=== PATIENT | female | born 2000 | race Two or more races ===

== ENCOUNTER 2024-09-09 14:04 | Emergency (ER) | payer MEDICAID, SELFPAY ==
[2024-09-09 14:05] VITALS: BMI 20.1
[2024-09-09 14:10] VITALS: BP 113/75; PULSE 88; RESP 16; TEMP 36.9; O2SAT 96
--- NOTE | 2024-09-09 15:03 | PD.EDLOWEX ---
Lower Extremity Injury RME/HPI General Chief Complaint: Extremity Injury, Lower Stated Complaint: INJURY TO RIGHT KNEE TODAY Time Seen by Provider: 09/09/24 14:41 Source: patient Arrival date/time: 09/09/24 14:04 23-year-old female presents emergency department complaints of acute right knee pain. Patient reports she was walking when she felt her knee pop out of place and popped right back in. Patient does have a history of knee dislocations in the past. Patient did not attempt any interventions or take any OTC medications prior to ED visit. Patient denies any other associated symptoms or aggravating factors. No modifying factors, no radiation, no migration. Related Data Home Medications ?Medication ?Instructions ?Recorded ?Confirmed No Known Home Medications 10/16/18 10/16/18 Allergies Allergy/AdvReac Type Severity Reaction Status Date / Time No Known Allergies Allergy Verified 09/09/24 14:07 Review of Systems Review of Systems Systems Reviewed: All systems reviewed, normal except as documented Narrative Review of Systems: Gen: No fever, no chills, no weight loss EYES: No discharge, no visual changes, no pain HEENT: No ear pain, no congestion, no sore throat PULM: No shortness of breath, no cough, no congestion CV: No chest pain, no dyspnea on exertion, no palpitations GI: No nausea, no vomiting, no diarrhea, no pain, no constipation : No frequency, no urgency, no dysuria Musc/skel: +knee pain, no back pain Skin: No rash Psyc: No hallucinations, no depression Heme/Lymph: No easy bleeding or bruising tendencies Neuro: No weakness, no headache Past Medical History Past Medical History CARDIAC: Negative Congestive Heart Failure RESPIRATORY: Negative Chronic Obstructive Pulmonary Disease (COPD) GENITOURINARY: Negative Renal Disease ENDOCRINE: Negative Diabetes Mellitus Type 1 or Diabetes Mellitus Type 2 Social History SMOKING STATUS: Never smoker ED Exam Narrative Physical exam: General: Sittiing in Exam table in no acute distress, answering questions appropriately HENT: normocephalic, atraumatic, EOMI, PERRLA, moist mucous membranes Chest: chest wall is nontender Cardiac: regular rate and rhythm, normal S1 and S2, no murmurs, rubs, or gallops, capillary refill ?2 seconds Pulmonary: clear to auscultation bilaterally, no wheezing, crackles, or rhonchi Abdominal: active bowel sounds, soft, nontender, nondistended Neuro: A&OX3, CN II-XII intact, sensation grossly intact bilaterally in UE and LE. Skin: no rashes, no ecchymosis Ext: RIGHT knee anterior swelling, effusion mild. No crepitus Course Quality Measures none Orders Category Date Time Status Crutches .NOW Care 09/09/24 15:03 Completed XR knee RT 3V Stat Exams 09/09/24 15:03 Completed Ibuprofen Tab [Motrin Tab] Med 09/09/24 15:03 Discontinued 800 mg PO X1 ONE Vital Signs Vital signs: Vital Signs Temperature 98.4 F 09/09/24 14:10 Pulse Rate 88 09/09/24 14:10 Respiratory Rate 16 09/09/24 14:10 Blood Pressure 113/75 09/09/24 14:10 Pulse Oximetry (%) 96 09/09/24 14:10 Oxygen Delivery Method Room Air 09/09/24 14:10 Extremity Injury, Lower MDM Narrative MDM Narrative:: Clinical presentation appears to be that of Knee contusion rest. Knee xray reveals small knee effusion and no acute fracture. Will Dc home with crutches, knee brace and analgesic. Patient instructed to allow your injury to heal before you do slow movements. Prop your knee on pillows to help with swelling. Please follow up with Primary Doctor in 48 hrs. Please return to ER if any worsening symptoms. Patient data External records reviewed:: [facility] previous records Clinical information provided by:: patient Social determinants that could affect healthcare access:: none Patient has the following chronic illnesses:: None How is presenting disease/condition affected by chronic disease/condition?: no chronic disease Evaluation data The following diagnostics were reviewed and interpreted by me:: radiology exam(s) Lab and/or radiology exams considered but not ordered:: No Interpretation Summary: Examination: Knee, right , 3 views Technique: Knee AP, lateral, oblique 3 views Date and time of exam: September 09, 2024 1508 hrs. Indications: Patient fell today with injury to the knee, knee pain. Findings: No fracture or dislocation Significant knee effusion Impression: No fracture or dislocation Significant knee effusion, seen with internal derangement of the knee Medications / Prescriptions Medications or Prescriptions considered but not ordered:: No Medication administrations:: Medication Administration History Discontinued Medications Ibuprofen (Ibuprofen Tab 400 Mg Tablet) 800 mg PO X1 ONE Stop: 09/09/24 15:04 Last Admin: 09/09/24 15:21 Dose: 800 mg Documented By: ALBERTO Yes, all medications administered and effective Consultations Consultation(s) initiated? (list below): No Diagnosis Extremity Injury, Lower Differential Diagnosis: ankle sprain and strain, acute internal derangement of knee and other (Fracture, knee dislocation, patellar dislocation.) Most likely diagnosis given after review of the tests above:: Knee contusion, Knee effusion Admission Indicated Admission indicated?: not indicated Admission Request Was there a request for admission?: No Disposition Plan Disposition Plan: Discharge Discharge Attestation Discharge Attestation: The patient and all family members were given an opportunity to ask questions and understood the discharge instructions. Discharge instructions specifically effects, indications for sooner follow up or return to the emergency department, and the expected course of current diagnosis. Patient condition: Stable Discharge Plan Plan Patient Disposition: HOME (Self Care) Patient condition on transfer: Stable Prescriptions/Referrals Prescriptions/Med Rec: No Action No Known Home Medications Referrals: Aisha Fuller PATIENT TRANSPORT OFFICER [Primary Care Provider] - In 1 week Problem List Clinical Impression: Bilateral knee effusions, Acute knee pain Patient/Caregiver Discharge Instructions Discharge Activity: activity as tolerated Education Materials: ED Knee Effusion, ED Knee Sprain Additional Instructions: - It is very important that you follow-up with your provider Wear knee brace as directed use your crutches. You might need an outpatient MRI reTurn to the emergency department with any worsening symptoms change in condition. Print Language: Arabic Stand Alone Forms: Naya Award Info., Work/School Release, Patient Portal Info Letter DEEPTI/BERONICA Supervising Physician DEEPTI/BERONICA Supervising Physician: Dr Bee
[2024-09-09] MEDS: IBUPROFEN TAB 400 MG TABLET 800 MG PO (15:21)
== END 2024-09-09 17:34 | disposition home or self-care (01) ==
PROVIDERS: Emergency Provider Emergency Medicine; PCP Nurse Practitioner Family
DX: S89.91XA Unspecified injury of right lower leg, initial encounter (principal); M25.462 Effusion, left knee; M25.461 Effusion, right knee; X58.XXXA Exposure to other specified factors, initial encounter; Y93.01 Activity, walking, marching and hiking
CPT/HCPCS: 73562; 99283; A9270

== ENCOUNTER → 2024-10-06 | Outpatient (CLI) | payer MEDICAID, SELFPAY ==
--- NOTE | 2024-10-06 07:30 | XR_ITS ---
Exam: MRI knee without contrast, right Date and time of exam: October 06, 2024 0759 hrs. Indications: Patient fell one month ago with injury to the knee followed by pain Technique: Multiple axial, coronal, and sagittal sections on the knee have been obtained. T2-Weighted sagittal, fat-suppressed images, TR 3,500, TE 62, T2 weighted coronal fat-saturated images, TR 3,500, TE 62 Proton density sagittal sections, TR 1800, TE 31. T-1 weighted coronal images, TR 524, TE 13.0 Findings: Medial meniscus anterior horn intact. Medial meniscus, body is intact. Posterior horn medial meniscus intact. Lateral meniscus anterior horn is intact Lateral meniscus, body is intact Posterior horn lateral meniscus is intact Anterior cruciate ligament moderate sprain Posterior cruciate ligament appears intact. Knee effusion is significant. Evidence for prior complete patellar dislocation with high-grade tear of the medial patellar retinaculum, bone marrow contusion medial patella and bone contusion anterior lateral femoral condyle Currently 10 mm subluxation of the patella laterally Strain of the patellar tendon also at its patellar insertion Inflammatory change or fracture of Hoffa's fat pad is not seen. Medial patellar facet demonstrates no thinning. Lateral patellar facet cartilage demonstrates no thinning. Trochlear cartilage demonstrates no thinning. Medial collateral ligament appears intact. No meniscocapsular separation is seen. Illiotibial band and fibular collateral ligament are intact. Biceps femoris tendons appear intact. Medial femoral condylar articular cartilage demonstrates no thinning. Lateral femoral condylar articular cartilage demonstratesno thinning. Tibial plateau cartilage demonstrates no thinning. Impression: Findings are consistent with prior complete patellar dislocation as above, including high-grade sprain of the medial patellar retinaculum Currently 10 mm lateral subluxation of the patella Moderate sprain anterior cruciate ligament
== END | disposition home or self-care (01) ==
PROVIDERS: Referring Provider Physician Assistant; Visit Provider Physician Assistant
DX: S76.191A Other specified injury of right quadriceps muscle, fascia and tendon, initial encounter (principal); S83.011A Lateral subluxation of right patella, initial encounter; S83.511A Sprain of anterior cruciate ligament of right knee, initial encounter; W19.XXXA Unspecified fall, initial encounter
CPT/HCPCS: 73721

== ENCOUNTER 2025-05-20 08:30 | Outpatient (RCR) | payer MEDICAID, SELFPAY ==
--- NOTE | 2025-05-17 13:38 | PTNOTE_ITS ---
PT OP Initial Eval Patient Information Outpatient Physical Therapy Treatment Date: 05/17/25 Visit Reasons: Right distal femoral post op Medical Diagnosis: M25.361 Treatment Dx #1: Right Knee Mobility Deficits Treatment Dx #2: Right Knee Weakness Start of Care: 05/17/25 Date of Onset: 05/06/25 Smoking Status Smoking Status: Never smoker Initial Assessment Subjective: Pt is a 24 y/o female s/p distal femoral derotational DFO 05/06/25 due to knee instability and injury ~ 9 months ago. Pt still has pain (7/10) with activities. Pt has limitation with standing, walking, chores, self care, balance, recreational activities, and performing ADLs. Objective: Right Knee AROM: -10 deg to 30 deg Right Knee PROM: -8 deg to 40 deg Right Knee MMTs: grossly 2-/5 Right Hip MMTs: grossly 2-/5 Assessment: Pt demonstrate right knee mobility and strength deficits s/p knee surgery leading to difficulty with ADLs. Pt will benefit from physical therapy to increase ROM, strength, and work on ambulation. Short Term and Sleeve Turner Goals 1) Increase right knee AROM WNL in 12 wks to be able to perform chores 2) Increase right knee MMTs grossly to 4-/5 in 12 wks to be able to perform squatting activities 3) Increase right hip MMTs grossly to 4-/5 in 12 wks to be able to walk without AD 4) Decrease knee pain to 2/10 in 12 wks to be able to perform recreational activities 5) Increase SLS to 20 sec in 12 wks to be able to perform self care activities 6) Indep with HEP Treatment Plan 1) Manual Therapy 2) Therapeutic Activities 3) Therapeutic Exercises 4) Modalities (ice, heat) 5) Balance Training 6) Gait Training Frequency and Duration: 2 x wk for 12 wks Certification Dates: 05/17/25 to 08/17/25 Procedure Charges OP PT Eval Mod Complex 30 minutes: Yes
--- NOTE | 2025-05-20 09:50 | PT.ODAYNRPT ---
PT Outpatient Daily Note OP Daily Note Outpatient Physical Therapy Treatment Date: 05/20/25 Visit Reasons: Right distal femoral post op Subjective: Pt has been practicing HEP at home but knee feels really stiff. Pt will be seeing Dr Casiano on since he was concern about the knee not bending as far as expected Objective: Please see flow chart for list of ther ex perfomed Assessment: patient very guarded with PROM due to pain. Minimal increase in AAROM noted post PT session. Post ice helped with pain and soreness. Pt encouraged to continue HEP to help increase knee flexion ROM. Pt gave verbal consent and understanding. Plan: Continue with PT Length of Time (minutes) of Treatment: 30 Minutes Procedure Charges Therapeutic Exercise 30 minutes: Yes
== END 2025-05-23 23:59 | disposition home or self-care (01) ==
LOC: CPTX 08:30
PROVIDERS: PCP Orthopaedic Surgery; Referring Provider Orthopaedic Surgery; Visit Provider Orthopaedic Surgery
DX: M25.561 Pain in right knee (principal); M25.361 Other instability, right knee; R53.1 Weakness; R26.2 Difficulty in walking, not elsewhere classified; R26.89 Other abnormalities of gait and mobility; S89.91XD Unspecified injury of right lower leg, subsequent encounter; X58.XXXD Exposure to other specified factors, subsequent encounter
CPT/HCPCS: 97110; 97162

== ENCOUNTER 2025-06-20 11:00 | Outpatient (RCR) | payer MEDICAID, SELFPAY ==
--- NOTE | 2025-05-24 14:13 | PTNOTE_ITS ---
PT Outpatient Daily Note OP Daily Note Outpatient Physical Therapy Treatment Date: 05/24/25 Visit Reasons: RT femoral distal post op Subjective: Pt reports having follow up with surgeons GLOBAL PRODUCT MANAGER, GLOBAL PRODUCT MANAGER gave updated instructions would like pt to be at or past 90 deg of knee flexion on her follow up appointment in 2 weeks. Pt mentiond that she was prescribed pain meds and muscle relaxers but has not been able to get them from pharmacy yet. Pt also mentioned she is to con tinue wearing brace and using cruches but GLOBAL PRODUCT MANAGER said she can start TTWB on R LE. Objective: Please see flow sheet for ther ex list. Assessment: Pt highly guarded during PROM into knee flexion, attempted in supine and sitting but pt guarded. Pt educated on the importance of performing HEP, encouraged pt to perform HEP pt agreed. Plan: Continue with pOC. Length of Time (minutes) of Treatment: 30 Minutes Procedure Charges Therapeutic Exercise 30 minutes: Yes
--- NOTE | 2025-05-28 13:08 | PT.ODAYNRPT ---
PT Outpatient Daily Note OP Daily Note Outpatient Physical Therapy Treatment Date: 05/28/25 Visit Reasons: RT femoral distal post op Subjective: Pt's has been more aggressive with physical therapy at home. Pt notice some progress with bending. Pt still has difficulty bending her knee while sitting. Pt took half of a pain medication prior to PT session Objective: Right Knee AROM: 48 deg Assessment: Pt is slowly progressing with knee flexion AROM. Pt less guarded with PROM today due to pre-medication. Pt instructed to continue until she's able to tolerate PROM/exercises. Towards end of PT session patient was able to sit with right knee slightly bent with glutes touching the bed. Plan: Continue with PT Length of Time (minutes) of Treatment: 30 Minutes Procedure Charges Therapeutic Exercise 30 minutes: Yes
--- NOTE | 2025-05-30 13:23 | PT.ODAYNRPT ---
PT Outpatient Daily Note OP Daily Note Outpatient Physical Therapy Treatment Date: 05/30/25 Visit Reasons: RT femoral distal post op Subjective: Pt shared she has not done HEP since she was here in PT last 2 days ago. Pt feels knee mobility is slowly progressing. Objective: Please see flow sheet for ther ex list. Assessment: High focus on restoring knee flexion of R knee. Decrease guarding allowing for more ROM during PROm, able to reach ~54 deg of knee flex PROM. Plan: Continue with poC. Length of Time (minutes) of Treatment: 30 Minutes Procedure Charges Therapeutic Exercise 30 minutes: Yes
--- NOTE | 2025-06-05 12:44 | PT.ODS1RPT ---
PT OP Progress/Discharge Note Date of Service: 06/05/25 Progress Note/DC Note Progress Note/Discharge Note: Progress Note Patient Information Visit Reasons: RT femoral distal post op Medical Diagnosis: M25.361 Treatment Dx #1: Right Knee Mobility Deficits Treatment Dx #2: Right Knee Weakness Service Continue Service or Discharge: Continue Service Certification Date Certification Dates: 06/05/25 to 09/05/25 Status Subjective: Pt's knee continues to feel stiff with bending. Pt has been able to get in/out of bed, transfer, and sit with less limitation. Pt continues her HEP at home, however, progress is slow. Pt will be following up with specialist tomorrow and is concern since her knee is not at 90 deg. Objective: Right Knee AROM 59 deg Right Knee PROM: 62 deg Right Knee MMTs: grossly 3-/5 Right Hip MMTs: grossly 3-/5 Active SLR: 90 deg Assessment: Pt is slowly progressing with right knee AROM and strength allowing her to sit, transfer, ambulate, and perform light ADLs with less limitation. Pt is very guarded during passive stretching and exercises due to fear of pain and knee hypomobility. Pt has not met set goals and will continue to benefit from physical therapy; thank you for your referrals. Plan: Continue with PT/POC Procedure Charges Therapeutic Exercise 30 minutes: Yes
--- NOTE | 2025-06-07 15:25 | PT.ODAYNRPT ---
PT Outpatient Daily Note OP Daily Note Outpatient Physical Therapy Treatment Date: 06/07/25 Visit Reasons: RT femoral distal post op Subjective: According to patient she is allowed to ambulate with WBAT per surgeon since the bone are healing correctly. Surgeon was not too concern about the knee not being at 90 deg. Pt will follow up with surgeon in 3 weeks and will like the knee to be able to bend more. Objective: Right Knee Flexion AROM: 65 deg Assessment: Pt continues to slowly progress with knee flexion AROM; per new MD order Pt is allowed to WBAT and was able to perform side step exercise in PB. Pt's SLR improve with better quad control. Plan: Conitnue with PT Length of Time (minutes) of Treatment: 30 Minutes Procedure Charges Therapeutic Exercise 30 minutes: Yes
--- NOTE | 2025-06-12 11:32 | PT.ODAYNRPT ---
PT Outpatient Daily Note OP Daily Note Outpatient Physical Therapy Treatment Date: 06/12/25 Visit Reasons: RT femoral distal post op Subjective: Pt reports R knee is doing a little better, continues working on HEP. Objective: Please see flow sheet for ther ex list. Assessment: Focus on restoring ROM. Worked on active knee flexion and heel strike resulting in improved gait. Plan: Continue with pOC. Length of Time (minutes) of Treatment: 30 Minutes Procedure Charges Therapeutic Exercise 30 minutes: Yes
--- NOTE | 2025-06-14 12:06 | PT.ODAYNRPT ---
PT Outpatient Daily Note OP Daily Note Outpatient Physical Therapy Treatment Date: 06/14/25 Visit Reasons: RT femoral distal post op Subjective: Pt's knee is tight. Pt has been practicing walking at home. Pt notice she can bend her knee more now with walking. Objective: Right Knee AROM: 67 deg; PROM: 72 deg Assessment: Pt is slowly progressing with knee AROM and PROM with less pain reported. Practice GT with one crutch; patient demonstrate safely Plan: Continue with PT Length of Time (minutes) of Treatment: 30 Minutes Procedure Charges Therapeutic Exercise 30 minutes: Yes
--- NOTE | 2025-06-18 13:37 | PT.ODAYNRPT ---
PT Outpatient Daily Note OP Daily Note Outpatient Physical Therapy Treatment Date: 06/18/25 Visit Reasons: RT femoral distal post op Subjective: Pt reports she has been compliant with HEP. Objective: Please see flow sheet for ther ex list. Assessment: Pt is highly guarded during PROM resulting in slow progress with ROM. Plan: Continue with pOC. Length of Time (minutes) of Treatment: 30 Minutes Procedure Charges Therapeutic Exercise 30 minutes: Yes
--- NOTE | 2025-06-20 13:53 | PTNOTE_ITS ---
PT Outpatient Daily Note OP Daily Note Outpatient Physical Therapy Treatment Date: 06/20/25 Visit Reasons: RT femoral distal post op Subjective: Pt reports she has been working on HEP, feels ROM of knee is slowly progressing. Pt shared that she has a follow up with surgeon on the 27 of June, pending on possible MARGI. Pt mentioned that she feels some pain with prone knee flexion stretch but pain resoves post strech and mentioned knee feels looser post PRO M. Objective: Please see flow sheet for ther ex list. R knee AROM 73 deg flexion. Assessment: Performed PROM into knee flexion with pt in prone position, pt highly guarded during PROM. Pt instructed on prone stretching in order to avoid compensating with hip flexion and encouraged to add prone knee flexion to HEP, pt agreed. Plan: Continue with POC. Length of Time (minutes) of Treatment: 30 Minutes Procedure Charges Therapeutic Exercise 30 minutes: Yes
== END 2025-06-23 23:59 | disposition home or self-care (01) ==
LOC: CPTX 11:00
PROVIDERS: PCP Orthopaedic Surgery; Referring Provider Orthopaedic Surgery; Visit Provider Orthopaedic Surgery
DX: M25.561 Pain in right knee (principal); R26.2 Difficulty in walking, not elsewhere classified; R26.89 Other abnormalities of gait and mobility; Z98.890 Other specified postprocedural states; M25.361 Other instability, right knee; R53.1 Weakness
CPT/HCPCS: 97110

== ENCOUNTER 2025-07-23 10:00 | Outpatient (RCR) | payer MEDICAID, SELFPAY ==
--- NOTE | 2025-06-26 12:42 | PT.ODAYNRPT ---
PT Outpatient Daily Note OP Daily Note Outpatient Physical Therapy Treatment Date: 06/26/25 Visit Reasons: RT femoral distal post op Subjective: Pt's knee is bending more. Pt continues to practice HEP at home. Pt mentioned she follows up with specialist tomorrow. Objective: Right Knee AAROM: 90 deg Assessment: Pt continues to slowly progress with knee flexion ROM, however, advised to consult with surgeon for possible MARGI to assist in speeding up with ROM. Pt gave verbal understanding and consent. Plan: Continue with PT Length of Time (minutes) of Treatment: 30 Minutes Procedure Charges Therapeutic Exercise 30 minutes: Yes
--- NOTE | 2025-06-28 12:10 | PT.ODAYNRPT ---
PT Outpatient Daily Note OP Daily Note Outpatient Physical Therapy Treatment Date: 06/28/25 Visit Reasons: RT femoral distal post op Subjective: Pt recently seen surgeon and wants her to up PT to 3x weekly. Surgeon did not seem concern regarding ROM since patient is slowly progressing. Pt has a follow up appt in 4 weeks. Objective: Please see flow chart for list of ther ex perfomed Assessment: decrease hip hike noted with sci fit. Pt was able to perform sitting SB closed chain knee flexion AAROM for a few mins. Pt had difficulty tolerating prone knee flexion stretch due to pain and tightness Plan: Continue with PT Length of Time (minutes) of Treatment: 30 Minutes Procedure Charges Therapeutic Exercise 30 minutes: Yes
--- NOTE | 2025-07-01 16:07 | PTNOTE_ITS ---
PT Outpatient Daily Note OP Daily Note Outpatient Physical Therapy Treatment Date: 07/01/25 Visit Reasons: RT femoral distal post op Subjective: Pt states she is doing well and is noticing progress with Rt knee ROM. Objective: See F/S for therex Assessment: Pt demo'd improvement w/ Rt knee flexion; Sci-Fit seat was advanced forward from 8 to 7 with minimal hip hike present. Able to perform SB wall sit up to 45 degrees knee flexion w/ cues needed to maintain even weight bearing. Improved tolerance w/ prone passive knee flexion stretch; limited due to pain and t ightness. Plan: Continue with POC Length of Time (minutes) of Treatment: 30 Minutes Procedure Charges Therapeutic Exercise 30 minutes: Yes
--- NOTE | 2025-07-03 11:56 | PT.ODAYNRPT ---
PT Outpatient Daily Note OP Daily Note Outpatient Physical Therapy Treatment Date: 07/03/25 Visit Reasons: RT femoral distal post op Subjective: Pt's knee is better but still feels stiff with walking. Pt has been stretching at home but doesn't feel as effective as when she's in therapy. Pt still use one crutch to help with walking especially long distance Objective: Please see flow chart for list of ther ex performed Assessment: patient demonstrate decrease knee flexion and foot with swing. Cue to heel toe and push off which improve foot clearance. Pt continues to progress slowly with knee flexion ROM Plan: Continue with PT Length of Time (minutes) of Treatment: 30 Minutes Procedure Charges Therapeutic Exercise 30 minutes: Yes
--- NOTE | 2025-07-05 11:20 | PT.ODAYNRPT ---
PT Outpatient Daily Note OP Daily Note Outpatient Physical Therapy Treatment Date: 07/05/25 Visit Reasons: RT femoral distal post op Subjective: Pt c/o Rt knee stiffness. Reports remaining consistent with HEP. Objective: See F/S for therex performed Assessment: Demo'd improvement w/ Rt knee flexion ROM w/ less hip hiking on the bike. Improved control and mechanics of Rt knee during exercises along w/ tolerance to prone passive knee flexion stretch. Ice pack applied post session. Plan: Continue with POC. Length of Time (minutes) of Treatment: 30 Minutes Procedure Charges Therapeutic Exercise 30 minutes: Yes
--- NOTE | 2025-07-08 11:57 | PT.ODAYNRPT ---
PT Outpatient Daily Note OP Daily Note Outpatient Physical Therapy Treatment Date: 07/08/25 Visit Reasons: RT femoral distal post op Subjective: Pt c/o of Rt knee stiffness, explains it is worse in the morning. Objective: See F/S for therex performed. Assessment: Tolerated therex well with no complaints and appropriate fatigue. Progressed to step ups and lateral step ups, demo'd good mechanics and control. Continues to progress slowly with knee flexion ROM. Ice pack applied post session. Plan: Continue with POC Length of Time (minutes) of Treatment: 30 Minutes Procedure Charges Therapeutic Exercise 30 minutes: Yes
--- NOTE | 2025-07-10 13:06 | PT.ODAYNRPT ---
PT Outpatient Daily Note OP Daily Note Outpatient Physical Therapy Treatment Date: 07/10/25 Visit Reasons: RT femoral distal post op Subjective: Pt reports progress with knee flexibility although range is not where she would like. Objective: Please see flow sheet for ther ex list. Assessment: pt demonstrates medial knee collapse during squat exercise likely due to poor hip abductor strength. Instructed pt to correct foot placement and knee position during squat exercise, pt complied. Plan: Continue with poC. Length of Time (minutes) of Treatment: 30 Minutes Procedure Charges Therapeutic Exercise 30 minutes: Yes
--- NOTE | 2025-07-10 14:18 | PT.ODAYNRPT ---
PT Outpatient Daily Note OP Daily Note Outpatient Physical Therapy Treatment Date: 07/10/25 Visit Reasons: RT femoral distal post op Subjective: Pt reports knee is doing better, ROM is progressing and is compliant with HEP. Objective: Please see flow sheet for ther ex list.
--- NOTE | 2025-07-12 12:03 | PT.ODAYNRPT ---
PT Outpatient Daily Note OP Daily Note Outpatient Physical Therapy Treatment Date: 07/12/25 Visit Reasons: RT femoral distal post op Subjective: Pt have been walking more lately. Pt notice soreness and muscle ache around the shins and calf region. Pt also reports of less knee cap pain with stretching Objective: Right Knee Flexion AROM: 94 deg Assessment: Pt continues to improve with knee flexion AROM with less pain reported. Able to increase stretching tolerance in prone knee flexion stretch Plan: Continue with PT Length of Time (minutes) of Treatment: 30 Minutes Procedure Charges Therapeutic Exercise 30 minutes: Yes
--- NOTE | 2025-07-15 15:52 | PT.ODAYNRPT ---
PT Outpatient Daily Note OP Daily Note Outpatient Physical Therapy Treatment Date: 07/15/25 Visit Reasons: RT femoral distal post op Subjective: Pt content to share that she notices the pain in the middle of her knee has improved. Pt was out of town over the weekend did more walking that usual and knee did well. Objective: Please see flow sheet for ther ex list. Assessment: Pt demonstrates improved gait pattern, normal mel and pt is flexing R knee during swing phase. Plan: Continue with poC. Length of Time (minutes) of Treatment: 30 Minutes Procedure Charges Therapeutic Exercise 30 minutes: Yes
--- NOTE | 2025-07-18 16:13 | PT.ODAYNRPT ---
PT Outpatient Daily Note OP Daily Note Outpatient Physical Therapy Treatment Date: 07/18/25 Visit Reasons: RT femoral distal post op Subjective: Pt notice ROM improvement and is satisfy so far. Objective: Right Knee Flexion AROM: 98 deg//105 deg Assessment: patient progressing with knee flexion AROM and today reports of less knee pain during passive stretching Plan: Continue with PT Length of Time (minutes) of Treatment: 30 Minutes Procedure Charges Therapeutic Exercise 30 minutes: Yes
--- NOTE | 2025-07-23 10:37 | PTNOTE_ITS ---
PT OP Progress/Discharge Note Date of Service: 07/23/25 Progress Note/DC Note Progress Note/Discharge Note: Progress Note Patient Information Visit Reasons: RT femoral distal post op Medical Diagnosis: M25.361 Treatment Dx #1: Right Knee Mobility Deficits Treatment Dx #2: Right Knee Weakness Service Continue Service or Discharge: Continue Service Certification Date Certification Dates: 07/23/25 to 10/12/25 Status Subjective: Pt's knee still hurts but is feeling much better. Pt has been able to stand, walk, perform chores, self care, and light ADLs with less limitation. Pt still has limitation with deep squatting, stairs, recreational activities, and prolonged walking. Pt has a follow up appt with surgeon this coming week. Objective: Right Knee AROM: 0 deg to 105 deg Right Knee MMTs: grossly 3+/5 Right Hip MMTs: grossly 3/5 SLS: 5 sec Assessment: Pt is progressing with knee fleixon AROM and strength allowing her to perform light ADLs, ambulation, and chores with less limitation. Pt has not met set goa ls and will continue to benefit from physical therapy to increase ROM, strength, and work on flexibility; thank you for your referrals. Plan: Continue with PT/POC and add 12 sessions (2 x wk for 6 wks) Procedure Charges Therapeutic Exercise 30 minutes: Yes
== END 2025-07-23 23:59 | disposition home or self-care (01) ==
LOC: CPTX 10:00
PROVIDERS: PCP Orthopaedic Surgery; Referring Provider Orthopaedic Surgery; Visit Provider Orthopaedic Surgery
DX: M25.561 Pain in right knee (principal); R53.1 Weakness; M25.361 Other instability, right knee; S89.81XD Other specified injuries of right lower leg, subsequent encounter; X58.XXXD Exposure to other specified factors, subsequent encounter
CPT/HCPCS: 97110

== ENCOUNTER 2025-08-12 11:00 | Outpatient (RCR) | payer MEDICAID, SELFPAY ==
--- NOTE | 2025-07-29 12:04 | PT.ODAYNRPT ---
PT Outpatient Daily Note OP Daily Note Outpatient Physical Therapy Treatment Date: 07/29/25 Visit Reasons: RT femoral distal post op Subjective: Pt has been walking a lot lately. If patient walks slower her gait is much better. Pt mentioned surgeon wants her knee to be at 130 deg of knee flexion for the 2nd surgery. Pt has a follow up in 3 weeks; if the knee is not 130 deg MARGI will be in place. Objective: Right Knee Flexion AROM: 108 deg Assessment: Pt is slowly improving with knee flexion AROM. Less guarding with prone knee flexion and able to increase knee flexion during passive stretching Plan: Continue with PT Length of Time (minutes) of Treatment: 30 Minutes Procedure Charges Therapeutic Exercise 30 minutes: Yes
--- NOTE | 2025-08-01 12:07 | PT.ODAYNRPT ---
PT Outpatient Daily Note OP Daily Note Outpatient Physical Therapy Treatment Date: 08/01/25 Visit Reasons: RT femoral distal post op Subjective: Pt had a follow up with surgeon last week, want pt to be at 130 deg knee flexion in 3 weeks or pt will be having a MARGI. Objective: Please see flow sheet for ther ex list. Assessment: Pt encouraged to continue with HEP, focus on restoring ROM within pt tolerance. Plan: Continue with poC. Length of Time (minutes) of Treatment: 30 Minutes Procedure Charges Therapeutic Exercise 30 minutes: Yes
--- NOTE | 2025-08-08 16:03 | PT.ODS1RPT ---
PT OP Progress/Discharge Note Date of Service: 08/08/25 Progress Note/DC Note Progress Note/Discharge Note: Progress Note Patient Information Visit Reasons: RT femoral distal post op Medical Diagnosis: M25.361 Treatment Dx #1: Right Knee Mobility Deficits Treatment Dx #2: Right Knee Pain Service Continue Service or Discharge: Continue Service Certification Date Certification Dates: 08/08/25 to 11/08/25 Status Subjective: Pt's knee is feeling much better, however, notice boyd pain after long walks. Pt has been able to stand, walk longer, perform stairs, and self care activities with less limitation. Pt continues to stretch at home and hasn't been focusing too much on walking with good gait ground support equipment mechanic Objective: Right Knee AROM: 0 deg to 120 deg Right Knee PROM: 0 deg to 125 deg Right Knee MMTs: grossly 4-/5 Right Hip MMTs: grossly grossly 3+/5 SLS: 15 sec Gait Observation: decrease knee flexion in preswing and swing phase. Assessment: Pt continues to improve with right knee flexion AROM and gait ground support equipment mechanic. Pt continue to require cues to heel toe and push off with great toe to increase knee flexion in preswing/swing phase to improve gait ground support equipment mechanic. Pt still exhibit quad and glute weakness and will continue to benefit from physical therapy to improve impairment; thank you for your referrals. Plan: Continue with PT/POC Procedure Charges Gait Training 15 minutes: Yes Therapeutic Exercise 15 minutes: Yes
--- NOTE | 2025-08-12 12:51 | PT.ODAYNRPT ---
PT Outpatient Daily Note OP Daily Note Outpatient Physical Therapy Treatment Date: 08/12/25 Visit Reasons: RT femoral distal post op Subjective: Pt continues to experience boyd pain with walking or resting. Pt mentioned it feels like a nerve shifting . Pt has a follow up appt with surgeon at the end of this week. Pt wants to continue physical therapy. Objective: Please see flow chart for list of ther ex performed Assessment: boyd pain with while on TM which affected her gait leading to decrease push off in terminal stance on the right LE. Pt advised to consult with specialist this week to determine nature of boyd pain. Pt gave verbal consent and understanding. Plan: Continue with PT Length of Time (minutes) of Treatment: 30 Minutes Procedure Charges Therapeutic Exercise 30 minutes: Yes
--- NOTE | 2025-09-17 12:55 | PT.ODS1RPT ---
PT OP Progress/Discharge Note Date of Service: 09/17/25 Progress Note/DC Note Progress Note/Discharge Note: DC Note Patient Information Visit Reasons: RT femoral distal post op Status Assessment: Pt has been seen for 25 visits (eval + 24 visits). Pt last treated on 08/12/25 and has not returned to therapy due to pending further authorization. Pt called today to cx all pending PT appt due to having second knee surgery done soon. Pt will return back to therapy with a new MD order. Pt did not meet set goals in therapy; thank you for your referrals.
== END 2025-08-23 23:59 | disposition home or self-care (01) ==
LOC: CPTX 11:00
PROVIDERS: PCP Orthopaedic Surgery; Referring Provider Orthopaedic Surgery; Visit Provider Orthopaedic Surgery
DX: M25.561 Pain in right knee (principal); R53.1 Weakness; R26.2 Difficulty in walking, not elsewhere classified; R26.89 Other abnormalities of gait and mobility; M25.361 Other instability, right knee; Z98.890 Other specified postprocedural states
CPT/HCPCS: 97110; 97116

== ENCOUNTER 2025-10-23 09:30 | Outpatient (RCR) | payer MEDICAID, SELFPAY ==
--- NOTE | 2025-10-02 09:35 | PTNOTE_ITS ---
PT OP Initial Eval Patient Information Outpatient Physical Therapy Treatment Date: 10/02/25 Visit Reasons: RT KNEE SURGERY Medical Diagnosis: Right Knee Pain Treatment Dx #1: Right Knee Mobility Deficits Treatment Dx #2: Right Knee Weakness Start of Care: 10/02/25 Date of Onset: 09/18/25 Smoking Status Smoking Status: Never smoker Initial Assessment Subjective: Pt is a 25 y/o female s/p right MPFL reconstruction 09/18/25. Pt still has knee pain (7/10) with activities. Pt has limitation with standing, walking, chores, balance, self care, cooking, cleaning, squatting, working out, and perfomring recreational activities. Objective: Right Knee PROM: -3 deg to 86 deg Right Knee AROM: -6 deg to 81 deg Right Knee MMTs: grossly 3-/5 Right Hip AROM: all motions are WFL Right Hip MMTs: grossly 3-/5 Active SLR: 90 deg SLS: NT Assessment: Pt demonstrate right knee mobility and strength deficits s/p surgery leading to difficulty with ADLs. Pt will benefit from physical therapy to increase ROM, strength, and work on knee stability Short Term and Halfway Goals 1) Increase right knee AROM WNL in 12 wks to be able to perform chores 2) Decrease knee pain to 2/10 in 12 wks to be able to stand more than 30 mins 3) Increase right knee MMTs grossly to 4/5 in 12 wks to be able to perform squatting activities 4) Increase right hip AROM WNL in 12 wks to be able to perform recreational activities 5) Increase right hip MMTs grossly to 4-/5 in 12 wks to be able to walk more than 30 mins 6) Indep with HEP Treatment Plan 1) Manual Therapy 2) Therapeutic Activities 3) Therapeutic Exercises 4) Modalities (ice, heat) 5) Balance Training 6) Gait Training Frequency and Duration: 2 x wk for 12 wks Certification Dates: 10/02/25 to 12/31/25 Procedure Charges OP PT Eval Mod Complex 30 minutes: Yes
--- NOTE | 2025-10-03 14:13 | PT.ODAYNRPT ---
PT Outpatient Daily Note OP Daily Note Outpatient Physical Therapy Treatment Date: 10/03/25 Visit Reasons: RT KNEE SURGERY Subjective: Pt notice cramping around her knee. Pt has not been using ice at home. Pt does not notice some swelling. Objective: Right Knee Flexion AROM: 85 deg Assessment: Pt is progressing with knee flexion AROM. Pt decline ice today and instructed to ice at home as needed for edema management. Pt gave verbal understanding Plan: Continue with PT Length of Time (minutes) of Treatment: 30 Minutes Procedure Charges Therapeutic Exercise 30 minutes: Yes
--- NOTE | 2025-10-07 15:13 | PT.ODAYNRPT ---
PT Outpatient Daily Note OP Daily Note Outpatient Physical Therapy Treatment Date: 10/07/25 Visit Reasons: RT KNEE SURGERY Subjective: Pt reports R knee is doing ok, continues to be compliant with HEP. Objective: Please see flow sheet for ther ex list. Assessment: Pt demonstrates poor quad recruitment at this time, pt encouraged to continue with HEP. Plan: Continue with pOC. Length of Time (minutes) of Treatment: 30 Minutes Procedure Charges Therapeutic Exercise 30 minutes: Yes
--- NOTE | 2025-10-11 10:17 | PT.ODAYNRPT ---
PT Outpatient Daily Note OP Daily Note Outpatient Physical Therapy Treatment Date: 10/11/25 Visit Reasons: RT KNEE SURGERY Subjective: Pt is concern about her walking. With crutches Pt is walking better and without she walks like she has brakes on her knee. Pt also notice her knee cap catches at times with bending the knee. Objective: Right Knee Flexion AROM: 105 deg Assessment: Pt is progressing with knee flexion AROM with less pain reported. Pt educated that knee instability may relate to quad weakness which should improved in a few months Plan: Continue with PT Length of Time (minutes) of Treatment: 30 Minutes Procedure Charges Therapeutic Exercise 30 minutes: Yes
--- NOTE | 2025-10-14 11:43 | PT.ODAYNRPT ---
PT Outpatient Daily Note OP Daily Note Outpatient Physical Therapy Treatment Date: 10/14/25 Visit Reasons: RT KNEE SURGERY Subjective: Pt's knee is better. Pt still concerns about her walking since she continues to walk like there's brakes in her knee . Pt did a lot of walking yesterday in [place] and feels soreness Objective: Right Knee Flexion AROM: 108 deg Assessment: Pt is progressing with knee flexion AROM. 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
--- NOTE | 2025-10-18 13:59 | PT.ODAYNRPT ---
PT Outpatient Daily Note OP Daily Note Outpatient Physical Therapy Treatment Date: 10/18/25 Visit Reasons: RT KNEE SURGERY Subjective: Pt's knee is better and notice less popping with walking. Pt still feels weak in the knee in standing or while performing prolonged activities. Objective: Please see flow chart for list of ther ex performed Assessment: progressing with knee flexion AROM and continues to improve with quad recruitment. Pt has been progress to LAQ, however, still has difficulty completing full knee extension in sitting Plan: Continue with PT Length of Time (minutes) of Treatment: 30 Minutes Procedure Charges Therapeutic Exercise 30 minutes: Yes
--- NOTE | 2025-10-23 10:59 | PTNOTE_ITS ---
PT Outpatient Daily Note OP Daily Note Outpatient Physical Therapy Treatment Date: 10/23/25 Visit Reasons: RT KNEE SURGERY Subjective: Pt has been paying attention to how she walks at home. Pt notice with crutches she trust the knee more and is walking better. 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 Objective: Please see flow chart for list of ther ex performed Assessment: improved push off and knee flexion in pre swing and swing phase. Added TG squat to increase quad recruitment and work on weight bearing tolerance Plan: Continue with PT Length of Time (minutes) of Treatment: 30 Minutes Procedure Charges Therapeutic Exercise 30 minutes: Yes
== END 2025-10-23 23:59 | disposition home or self-care (01) ==
LOC: CPTX 09:30
PROVIDERS: PCP Physician Assistant; Referring Provider Orthopaedic Surgery; Visit Provider Orthopaedic Surgery
DX: Z47.89 Encounter for other orthopedic aftercare (principal); Z98.890 Other specified postprocedural states; M25.561 Pain in right knee; R53.1 Weakness; R26.89 Other abnormalities of gait and mobility; R26.2 Difficulty in walking, not elsewhere classified
CPT/HCPCS: 97110; 97162